=== PATIENT | female | born 1960 | race African-American/Black ===

== ENCOUNTER 2021-01-27 05:02 | Day surgery (SDC) | payer OTHER ==
[2021-01-26 16:05] VITALS: BMI 32.9
[2021-01-27 10:42] VITALS: TEMP 97.5
[2021-01-27 11:08] VITALS: BP 153/72; PULSE 48
== END 2021-01-27 11:23 | disposition home or self-care (01) ==
LOC: JASU-ENDO 05:02
PROVIDERS: ATTEND Internal Medicine Gastroenterology
PROC: 0DB68ZX Excision of Stomach, Via Natural or Artificial Opening Endoscopic, Diagnostic (ICD-10-PCS; principal; 2021-01-27 09:45)
DX: K25.9 Gastric ulcer, unspecified as acute or chronic, without hemorrhage or perforation (principal); K29.50 Unspecified chronic gastritis without bleeding
CPT/HCPCS: 88305-TC; 88342-TC

== ENCOUNTER 2021-02-03 05:24 | Day surgery (SDC) | payer OTHER ==
[2021-02-02 13:39] VITALS: BMI 32.9
[2021-02-03 12:39] LABS: MAGNESIUM 2.3 mg/dL (1.8-2.4)
[2021-02-03 12:42] LABS: CREATININE 0.7 mg/dL (0.55-1.3); PHOSPHOROUS 3.3 mg/dL (2.5-4.9)
[2021-02-03] MEDS ORDERED: POTASSIUM CHLORIDE TABS 20 MEQ TABLET.ER (FP) PO ONE (12:42)
[2021-02-03 13:13] VITALS: BP 140/76; PULSE 56; TEMP 98.4
== END 2021-02-03 13:14 | disposition home or self-care (01) ==
LOC: JASU-ENDO 05:24
PROVIDERS: ATTEND Internal Medicine Gastroenterology
PROC: 0DJD8ZZ Inspection of Lower Intestinal Tract, Via Natural or Artificial Opening Endoscopic (ICD-10-PCS; principal; 2021-02-03 10:42)
DX: Z12.11 Encounter for screening for malignant neoplasm of colon (principal); K64.8 Other hemorrhoids
CPT/HCPCS: 36415; 80048; 83735; 84100